=== PATIENT | male | born 1985 | race Caucasian/White ===

== ENCOUNTER 2016-12-25 11:12 | Emergency (ER) | payer OTHER ==
[2016-12-25 11:21] VITALS: BP 134/98; PULSE 80; RESP 20; TEMP 98.1
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
== END 2016-12-25 13:17 | disposition home or self-care (01) ==
LOC: EC 11:12
DX: S62.307A Unspecified fracture of fifth metacarpal bone, left hand, initial encounter for closed fracture (principal); S16.1XXA Strain of muscle, fascia and tendon at neck level, initial encounter; S51.002A Unspecified open wound of left elbow, initial encounter; S20.91XA Abrasion of unspecified parts of thorax, initial encounter; V86.09XA Driver of other special all-terrain or other off-road motor vehicle injured in traffic accident, initial encounter; Y92.410 Unspecified street and highway as the place of occurrence of the external cause; Y93.55 Activity, bike riding
CPT/HCPCS: 29125; 71020; 72050; 99284